=== PATIENT | female | born 1950 | race Caucasian/White ===

== ENCOUNTER 2023-01-12 10:04 | Emergency (ER) | payer OTHER, BC ==
[2023-01-12 10:16] VITALS: BMI 24.1
[2023-01-12 12:22] LABS: BASO % 0.4 % (0-2.0); EOS % 0.4 % (0-4.5); HEMATOCRIT 46.6 % (32.4-45.2); HEMOGLOBIN 15.5 GM/dL (10.7-15.3); LYMPH % 12.6 % (8-40); MCH 30.1 pg (25.7-33.7); MCHC 33.2 g/dl (32.0-36.0); MEAN CELL VOLUME 90.6 fl (80-96); MEAN PLT VOLUME 9.4 fl (7.5-11.1); MONO % 8.5 % (3.8-10.2); NEUT % 78.1 % (42.8-82.8); PLATELET COUNT 243 10^3/uL (134-434); RBC 5.15 M/mm3 (3.60-5.2); RDW 13.7 % (11.6-15.6); WHITE BLOOD COUNT 5.3 K/mm3 (4.0-10.0)
[2023-01-12 12:25] LABS: INR 1.19 (0.83-1.09); PROTHROMBIN TIME (PATIENT) 13.8 SEC (9.7-13.0)
[2023-01-12] MEDS ORDERED: SODIUM CHLORIDE 1,000 ML IV STA (12:28)
[2023-01-12 12:45] LABS: POTASSIUM 5.8 mmol/L (3.5-5.1)
[2023-01-12 12:47] LABS: ALBUMIN 3.9 g/dl (3.4-5.0); CALCIUM 10.1 mg/dL (8.5-10.1)
[2023-01-12 12:48] LABS: BLOOD UREA NITROGEN 21.9 mg/dL (7-18); MAGNESIUM 2.4 mg/dL (1.8-2.4)
[2023-01-12 12:51] LABS: CREATININE 0.9 mg/dL (0.55-1.3)
[2023-01-12 12:52] LABS: BILIRUBIN,TOTAL 0.5 mg/dL (0.2-1); TOT PROT 7.1 g/dl (6.4-8.2)
[2023-01-12 14:29] VITALS: RESP 18; TEMP 98
[2023-01-12 15:07] LABS: POTASSIUM 5.1 mmol/L (3.5-5.1)
[2023-01-12 15:09] LABS: BLOOD UREA NITROGEN 20.4 mg/dL (7-18); CALCIUM 9.8 mg/dL (8.5-10.1)
[2023-01-12 15:13] LABS: CREATININE 0.8 mg/dL (0.55-1.3)
[2023-01-12 15:36] VITALS: BP 102/61; PULSE 65
== END 2023-01-12 17:23 | disposition home or self-care (01) ==
LOC: JER 10:04
PROC: 3E0337Z Introduction of Electrolytic and Water Balance Substance into Peripheral Vein, Percutaneous Approach (ICD-10-PCS; principal; 2023-01-12)
DX: R42 Dizziness and giddiness (principal); R55 Syncope and collapse; R61 Generalized hyperhidrosis; R00.2 Palpitations
CPT/HCPCS: 36415; 71045-TC-FY; 80048; 80053; 83735; 84484; 85025; 85610; 85730; 87086; 93005; 93010; 99285-25

== ENCOUNTER 2023-10-20 04:12 | Day surgery (SDC) | payer OTHER, BC ==
[2023-10-18 16:20] VITALS: BMI 23.3
[2023-10-20] MEDS ORDERED: BUPIVACAINE HCL/PF 0.5% (5MG/ML) 10 ML VIAL ONE ×2 (07:21→12:35)
[2023-10-20] MEDS ORDERED: LIDOCAINE HCL/PF 1% SDV 5ML VIAL ONE (07:21)
[2023-10-20] MEDS ORDERED: TRIAMCINOLONE ACET 40MG/1ML VIAL ONE (07:21)
[2023-10-20 11:12] VITALS: RESP 20
[2023-10-20] MEDS ORDERED: LIDOCAINE HCL/PF 2% SDV 5ML VIAL ONE (12:34)
[2023-10-20] MEDS: IOHEXOL 180 MG/1 ML ML IJ ONE (13:03)
[2023-10-20] MEDS: BUPIVACAINE HCL/PF 0.5% (5MG/ML) 10 ML VIAL IJ ONE ×2 (13:03)
[2023-10-20] MEDS: TRIAMCINOLONE ACET 40MG/1ML VIAL IM ONE (13:03)
[2023-10-20] MEDS: LIDOCAINE HCL 1% PRESERVATIVE FREE - 30ML VIAL IJ ONE (13:03)
[2023-10-20] MEDS ORDERED: ACETAMINOPHEN 500 MG TABLET (FP) PO PRN (13:06)
[2023-10-20 13:21] VITALS: BP 122/61; PULSE 59; TEMP 98.1
== END 2023-10-20 13:31 | disposition home or self-care (01) ==
LOC: JASU-SURG 04:12
PROVIDERS: ATTEND Pain Medicine Pain Medicine
PROC: 3E0U3BZ Introduction of Anesthetic Agent into Joints, Percutaneous Approach (ICD-10-PCS; 2023-10-20)
PROC: 3E0U33Z Introduction of Anti-inflammatory into Joints, Percutaneous Approach (ICD-10-PCS; principal; 2023-10-20 13:00)
DX: M53.3 Sacrococcygeal disorders, not elsewhere classified (principal)
CPT/HCPCS: 76000-TC-FY

== ENCOUNTER 2024-03-03 11:17 | Emergency (ER) | payer OTHER, BC ==
[2024-03-03 11:30] VITALS: RESP 17; TEMP 97.8; BMI 24.1
[2024-03-03] MEDS ORDERED: MAGNESIUM SULFATE IN WATER 2 GM/50 ML IVPB IVPB ONE (12:03)
[2024-03-03] MEDS: MAGNESIUM SULFATE IN WATER 2 GM/50 ML IVPB IVPB ONE (12:27)
[2024-03-03 12:48] LABS: BASO % 0.3 % (0-2.0); EOS % 0.7 % (0-4.5); HEMATOCRIT 47.2 % (32.4-45.2); HEMOGLOBIN 15.9 GM/dL (10.7-15.3); LYMPH % 19.7 % (8-40); MCH 30.3 pg (25.7-33.7); MCHC 33.8 g/dl (32.0-36.0); MEAN CELL VOLUME 89.7 fl (80-96); MEAN PLT VOLUME 8.2 fl (7.5-11.1); MONO % 16.1 % (3.8-10.2); NEUT % 63.2 % (42.8-82.8); PLATELET COUNT 266 10^3/uL (134-434); RBC 5.26 M/mm3 (3.60-5.2); RDW 14.3 % (11.6-15.6); WHITE BLOOD COUNT 5.1 K/mm3 (4.0-10.0)
[2024-03-03 12:55] LABS: INR 1.13 (0.83-1.09); PROTHROMBIN TIME (PATIENT) 12.9 SEC (9.7-13.0)
[2024-03-03 13:07] LABS: POTASSIUM 4.3 mmol/L (3.5-5.1)
[2024-03-03 13:11] LABS: CALCIUM 9.7 mg/dL (8.5-10.1)
[2024-03-03 13:12] LABS: ALBUMIN 3.8 g/dl (3.4-5.0); BLOOD UREA NITROGEN 23.3 mg/dL (7-18); MAGNESIUM 2.2 mg/dL (1.8-2.4)
[2024-03-03 13:17] LABS: BILIRUBIN,TOTAL 0.8 mg/dL (0.2-1); TOT PROT 6.8 g/dl (6.4-8.2)
[2024-03-03 13:18] LABS: CREATININE 1.1 mg/dL (0.55-1.3)
[2024-03-03] MEDS: LACTATED RINGERS SOLUTION 1000 ML INFUS.BAG IV ONE (13:26)
[2024-03-03 14:59] LABS: EPI CELLS 12 /uL (0-25.1); HYALINE CASTS 0 /uL (0-3.1); URINE APPEARANCE CLEAR; URINE BACTERIA 9 /uL (0-1359); URINE BILIRUBIN NEGATIVE (NEGATIVE); URINE COLOR YELLOW; URINE GLUCOSE (UA) NEGATIVE (NEGATIVE); URINE KETONE NEGATIVE (NEGATIVE); URINE LEUK ESTERASE NEGATIVE (NEGATIVE); URINE NITRITE NEGATIVE (NEGATIVE); URINE PROTEIN NEGATIVE (NEGATIVE); URINE RBC 52 /uL (0-23.9); URINE UROBILINOGEN 0.2 mg/dL (0.2-1.0); URINE WBC 3 /uL (0-25.8)
[2024-03-03 15:10] VITALS: BP 132/77; PULSE 87
== END 2024-03-03 15:16 | disposition home or self-care (01) ==
LOC: JER 11:17
PROC: 3E033GC Introduction of Other Therapeutic Substance into Peripheral Vein, Percutaneous Approach (ICD-10-PCS; principal; 2024-03-03)
DX: I48.91 Unspecified atrial fibrillation (principal); R00.0 Tachycardia, unspecified; R07.89 Other chest pain; R42 Dizziness and giddiness
CPT/HCPCS: 36415; 71275-TC; 80053; 81003; 83735; 84484; 85025; 85610; 86850; 86900; 86901; 87086; 93005; 93010; 99284-25; Q9967

== ENCOUNTER 2024-06-20 04:30 | Day surgery (SDC) | payer OTHER, BC ==
[2024-06-19 11:06] VITALS: BMI 26.2
[2024-06-20 12:18] VITALS: RESP 18; TEMP 97.1
[2024-06-20] MEDS: LIDOCAINE HCL 1% PRESERVATIVE FREE - 30ML VIAL IJ ONE (15:00)
[2024-06-20] MEDS: IOHEXOL 180 MG/1 ML ML IJ ONE (15:01)
[2024-06-20] MEDS: BUPIVACAINE HCL/PF 0.5% (5MG/ML) 10 ML VIAL IJ ONE (15:02)
[2024-06-20] MEDS: TRIAMCINOLONE ACETONIDE 40 MG/ML 10 ML VIAL IJ ONE (15:02)
[2024-06-20 15:20] VITALS: BP 110/49; PULSE 49
[2024-06-20] MEDS ORDERED: ACETAMINOPHEN 500 MG TABLET (FP) PO PRN (18:41)
== END 2024-06-20 15:41 | disposition home or self-care (01) ==
LOC: JASU-SURG 04:30
PROVIDERS: ATTEND Pain Medicine Pain Medicine
PROC: 3E0U3BZ Introduction of Anesthetic Agent into Joints, Percutaneous Approach (ICD-10-PCS; 2024-06-20)
PROC: 3E0U33Z Introduction of Anti-inflammatory into Joints, Percutaneous Approach (ICD-10-PCS; principal; 2024-06-20 14:00)
DX: M16.11 Unilateral primary osteoarthritis, right hip (principal)
CPT/HCPCS: 76000-TC-FY

== ENCOUNTER 2025-01-11 16:34 | Inpatient (IN) | payer OTHER, BC ==
[2025-01-11 16:43] VITALS: BMI 25.8
[2025-01-11] MEDS ORDERED: ACETAMINOPHEN 325 MG TABLET (FP) ONE (17:39)
[2025-01-11] MEDS: LACTATED RINGERS SOLUTION 1000 ML INFUS.BAG IV ONE (18:30)
[2025-01-11] MEDS: ACETAMINOPHEN 325 MG TABLET (FP) PO ONE (18:30)
[2025-01-11 18:31] LABS: ABSOLUTE IMMATURE GRANULOCYTES 0.01 x10^3/uL (0.0-0.031); BASOPHILS # 0.01 x10^3/uL (0.01-0.08); EOSINOPHIL % 0.0 % (0.7-5.8); EOSINOPHILS # 0.00 x10^3/uL (0.04-0.36); MCHC 32.4 g/dl (32.2-35.5); MEAN CELL VOLUME 91.0 fl (79.4-94.8); MEAN PLT VOLUME 9.5 fl (9.4-12.3); MONOCYTE # 0.22 x10^3/uL (0.24-0.86); MONOCYTE % 10.2 % (4.7-12.5); RDW 13.8 % (12.4-16.6)
[2025-01-11 18:35] LABS: EPI CELLS 22 /uL (0-25.1); HYALINE CASTS 1 /uL (0-3.1); URINE APPEARANCE CLEAR; URINE BACTERIA 3643 /uL (0-1359); URINE BILIRUBIN NEGATIVE (NEGATIVE); URINE COLOR YELLOW; URINE GLUCOSE (UA) NEGATIVE (NEGATIVE); URINE KETONE 1+ (NEGATIVE); URINE LEUK ESTERASE TRACE (NEGATIVE); URINE NITRITE NEGATIVE (NEGATIVE); URINE PROTEIN NEGATIVE (NEGATIVE); URINE RBC 66 /uL (0-23.9); URINE UROBILINOGEN 0.2 mg/dL (0.2-1.0); URINE WBC 70 /uL (0-25.8)
[2025-01-11 18:37] LABS: BG HCT 45.0 % (32.4-45.2); VENOUS BASE EXCESS -1.8 mmol/L (-2-2); VENOUS O2 SATURATION 88.6 % (70-80); VENOUS PCO2 30.1 mmHg (38-52); VENOUS PH 7.457 (7.310-7.410)
[2025-01-11 18:54] LABS: CO2 22.0 mmol/L (21-32); GLUCOSE,RANDOM 116.0 mg/dL (74-106)
[2025-01-11 18:56] LABS: CREATININE 0.7 mg/dL (0.55-1.3)
[2025-01-11 18:57] LABS: SGOT/AST 33.0 U/L (15-37); SGPT/ALT 27.0 U/L (13-61)
[2025-01-11 18:58] LABS: TOT PROT 6.4 g/dl (6.4-8.2)
[2025-01-11 18:59] LABS: ALK PHOS 74.0 U/L (45-117)
[2025-01-11] MEDS: PIPERACILLIN/TAZOB 3.375 GM 3.375 GM in DEXTROSE 5%-WATER - 50 ML IVPB ONE (20:57)
[2025-01-11] MEDS: PIPERACILLIN/TAZOB 4.5 GM 4.5 GM in DEXTROSE 5%-WATER 100 ML IVPB ONE (20:57)
[2025-01-11 23:12] LABS: EPI CELLS 8 /uL (0-25.1); HYALINE CASTS 0 /uL (0-3.1); URINE APPEARANCE CLEAR; URINE BACTERIA 743 /uL (0-1359); URINE BILIRUBIN NEGATIVE (NEGATIVE); URINE COLOR YELLOW; URINE GLUCOSE (UA) NEGATIVE (NEGATIVE); URINE KETONE NEGATIVE (NEGATIVE); URINE LEUK ESTERASE TRACE (NEGATIVE); URINE NITRITE NEGATIVE (NEGATIVE); URINE PROTEIN NEGATIVE (NEGATIVE); URINE RBC 11 /uL (0-23.9); URINE UROBILINOGEN 0.2 mg/dL (0.2-1.0); URINE WBC 19 /uL (0-25.8)
[2025-01-12] MEDS ORDERED: ACETAMINOPHEN 1000 MG/100 ML BAG IVPB PRN (01:03)
[2025-01-12] MEDS ORDERED: ERTAPENEM SODIUM 1 GM VIAL ONE (01:03)
[2025-01-12] MEDS: ERTAPENEM SODIUM 1 GM in SODIUM CHLORIDE 50 ML IVPB SCH (01:04)
[2025-01-12] MEDS: SODIUM CHLORIDE 1,000 ML IV STA ×2 (02:34→02:37)
[2025-01-12 09:29] LABS: MEAN PLT VOLUME 10.5 fl (9.4-12.3); RDW 13.9 % (12.4-16.6)
[2025-01-12 09:30] LABS: IMMATURE PLATELET FRACTION # 2.00 x10^3/uL; MCHC 31.9 g/dl (32.2-35.5); MEAN CELL VOLUME 91.1 fl (79.4-94.8)
[2025-01-12 10:05] LABS: ALK PHOS 66.0 U/L (45-117); CREATININE 0.6 mg/dL (0.55-1.3); GLUCOSE,RANDOM 114.0 mg/dL (74-106)
[2025-01-12 10:07] LABS: SGOT/AST 23.0 U/L (15-37); SGPT/ALT 30.0 U/L (13-61); TOT PROT 5.8 g/dl (6.4-8.2)
[2025-01-12 10:08] LABS: CO2 24.0 mmol/L (21-32)
[2025-01-12 10:45] LABS: MONOCYTE # 0.19 x10^3/uL (0.24-0.86)
[2025-01-12] MEDS: ANASTROZOLE 1 MG TABLET PO SCH (22:52)
[2025-01-12] MEDS: GABAPENTIN 300 MG CAPSULE PO SCH (22:52)
[2025-01-13 08:36] LABS: RDW 13.8 % (12.4-16.6)
[2025-01-13 08:38] LABS: IMMATURE PLATELET FRACTION # 3.10 x10^3/uL; MCHC 32.4 g/dl (32.2-35.5); MEAN CELL VOLUME 89.5 fl (79.4-94.8); MEAN PLT VOLUME 10.1 fl (9.4-12.3)
[2025-01-13 09:14] LABS: CO2 24.0 mmol/L (21-32); GLUCOSE,RANDOM 107.0 mg/dL (74-106)
[2025-01-13 09:15] LABS: CREATININE 0.6 mg/dL (0.55-1.3)
[2025-01-13 09:17] LABS: SGOT/AST 20.0 U/L (15-37); SGPT/ALT 27.0 U/L (13-61); TOT PROT 6.2 g/dl (6.4-8.2)
[2025-01-13 09:18] LABS: ALK PHOS 66.0 U/L (45-117)
[2025-01-13 14:36] VITALS: RESP 18
[2025-01-13] MEDS: ASPIRIN COATED 81 MG TABLET.EC PO SCH (14:56)
[2025-01-13] MEDS ORDERED: ACETAMINOPHEN 325 MG TABLET (FP) PO PRN (16:44)
[2025-01-13] MEDS: ENOXAPARIN NA (PORCINE) 40 MG/0.4 ML DISP.SYRIN SQ SCH (17:44)
[2025-01-14 09:10] LABS: ABSOLUTE IMMATURE GRANULOCYTES 0.00 x10^3/uL (0.0-0.031); BASOPHILS # 0.01 x10^3/uL (0.01-0.08); EOSINOPHIL % 1.7 % (0.7-5.8); EOSINOPHILS # 0.04 x10^3/uL (0.04-0.36); MCHC 31.9 g/dl (32.2-35.5); MEAN CELL VOLUME 89.9 fl (79.4-94.8); MEAN PLT VOLUME 9.9 fl (9.4-12.3); MONOCYTE # 0.38 x10^3/uL (0.24-0.86); MONOCYTE % 15.9 % (4.7-12.5); RDW 13.8 % (12.4-16.6)
[2025-01-14 09:35] LABS: CO2 24 mmol/L (21-32); GLUCOSE,RANDOM 105 mg/dL (74-106)
[2025-01-14 09:37] LABS: CREATININE 0.6 mg/dL (0.55-1.3)
[2025-01-14 09:38] LABS: SGOT/AST 18 U/L (15-37); SGPT/ALT 22 U/L (13-61)
[2025-01-14 09:39] LABS: TOT PROT 6.1 g/dl (6.4-8.2)
[2025-01-14 09:40] LABS: ALK PHOS 64 U/L (45-117)
[2025-01-15 06:35] VITALS: TEMP 97.7
[2025-01-15 08:43] LABS: MCHC 32.2 g/dl (32.2-35.5); MEAN CELL VOLUME 89.2 fl (79.4-94.8); MEAN PLT VOLUME 10.0 fl (9.4-12.3); RDW 13.6 % (12.4-16.6)
[2025-01-15 09:27] LABS: CO2 29.0 mmol/L (21-32); GLUCOSE,RANDOM 101.0 mg/dL (74-106)
[2025-01-15 09:29] LABS: CREATININE 0.6 mg/dL (0.55-1.3)
[2025-01-15 09:30] LABS: SGOT/AST 12.0 U/L (15-37); SGPT/ALT 19.0 U/L (13-61)
[2025-01-15 09:31] LABS: TOT PROT 5.9 g/dl (6.4-8.2)
[2025-01-15 09:32] LABS: ALK PHOS 65.0 U/L (45-117)
[2025-01-15] MEDS: CEFTRIAXONE 1 GM in DEXTROSE 5%-WATER - 50 ML IVPB SCH (09:47)
[2025-01-15] MEDS ORDERED: CEFTRIAXONE 1 GM in DEXTROSE 5%-WATER - 50 ML IVPB SCH (10:00)
[2025-01-15 10:55] VITALS: BP 120/62; PULSE 54
[2025-01-16] MEDS ORDERED: CEFUROXIME AXETIL 500 MG TABLET PO SCH (08:00)
== END 2025-01-15 11:27 | disposition home or self-care (01) | DRG 690 ==
LOC: JER 16:34 → JERBED 19:39 → J8W 01-12 03:36
PROVIDERS: ADMIT Internal Medicine; ATTEND Nurse Practitioner Acute Care
DX: N39.0 Urinary tract infection, site not specified (principal); D69.6 Thrombocytopenia, unspecified; I48.91 Unspecified atrial fibrillation; B96.1 Klebsiella pneumoniae [K. pneumoniae] as the cause of diseases classified elsewhere; D70.9 Neutropenia, unspecified; K58.9 Irritable bowel syndrome, unspecified; Z85.3 Personal history of malignant neoplasm of breast; Z96.641 Presence of right artificial hip joint; Z85.71 Personal history of Hodgkin lymphoma
CPT/HCPCS: 36415; 71046-TC-FY; 80053; 81003; 82607; 82746; 82803; 83605; 83735; 84100; 84443; 85025; 87040; 87077; 87086; 93005; 93010; 99285-25